=== PATIENT | male | born 1985 | race Caucasian/White ===

== ENCOUNTER 2016-11-01 16:22 | Emergency (ER) | payer BC ==
[~2016-11-01] VITALS: Ht 177.8 cm; Wt 102.1 kg
[~2016-11-01 16:22] MED LIST: ATIVAN0.5 MG PO; CEFTIN500 MG PO; COUMADIN 3 MG TA3 M1 PO; COUMADIN7.5 MG PO; FLAGYL500 MG PO; HYDROCODONE-AP1 EAC6 PO; PREDNISONE 10 M10 MG; VENLAFAXIN75 MG/1 T2 PO
[2016-11-01] MEDS ORDERED: XARELTO15 MG PO (16:52)
[2016-11-01 17:31] LABS: HEMATOCRIT 44.1 % (42.0-52.0); HEMOGLOBIN 14.8 gm/dL (14.0-18.0); MCH 26.8 pg (26.0-34.0); MCHC 33.7 g/dL (28.0-37.0); MCV 79.7 fL (80.0-100.0); PLATELET COUNT 239 thou/uL (150-400); RBC 5.53 mil/uL (4.50-6.00); WBC 9.5 thou/uL (4.0-11.0)
[2016-11-01 17:32] LABS: MANUAL DIFF YES
[2016-11-01 17:42] LABS: INR 1.2; PROTIME 12.3 Seconds (9.3-11.4)
[2016-11-01 18:07] LABS: ABSOLUTE NEUTROPHILS 5.2 thou/uL (1.4-8.2); ATYPICAL LYMPHS 6 %; TOTAL CELL COUNT 100
[2016-11-01] MEDS ORDERED: PREDNISONE 20 M20 MG PO (18:55)
[2016-11-01] MEDS ORDERED: HYDROCODONE-ACE15 ML PO (19:02)
== END 2016-11-01 19:58 | disposition home or self-care (01) ==
LOC: ER 16:22
PROVIDERS: Nurse Practitioner Family
DX: B27.90 Infectious mononucleosis, unspecified without complication (principal); R79.1 Abnormal coagulation profile; F17.220 Nicotine dependence, chewing tobacco, uncomplicated; F12.10 Cannabis abuse, uncomplicated; Z90.49 Acquired absence of other specified parts of digestive tract; Z86.14 Personal history of Methicillin resistant Staphylococcus aureus infection; Z86.711 Personal history of pulmonary embolism

== ENCOUNTER 2019-11-26 09:47 | Emergency (ER) | payer OTHER ==
[~2019-11-26] VITALS: Ht 180.3 cm; Wt 127.0 kg
[~2019-11-26 09:47] MED LIST changes: +HYDROCODONE-ACE15 ML PO; +PREDNISONE 20 M20 MG PO; +XARELTO15 MG PO
[2019-11-26] MEDS ORDERED: KEFLEX500 M1 PO (10:20)
[2019-11-26] MEDS ORDERED: BACTRIM DS TAB1 EACH PO (10:20)
[2019-11-26] MEDS ORDERED: MOBIC7.5 MG PO (10:20)
[2019-11-26 10:26] VITALS: BP 124/96
== END 2019-11-26 10:34 | disposition home or self-care (01) ==
LOC: ER 09:47
DX: L08.9 Local infection of the skin and subcutaneous tissue, unspecified (principal); B95.8 Unspecified staphylococcus as the cause of diseases classified elsewhere; I87.8 Other specified disorders of veins; L97.419 Non-pressure chronic ulcer of right heel and midfoot with unspecified severity; F17.220 Nicotine dependence, chewing tobacco, uncomplicated; Z90.49 Acquired absence of other specified parts of digestive tract; Z86.711 Personal history of pulmonary embolism; Z86.718 Personal history of other venous thrombosis and embolism; Z86.14 Personal history of Methicillin resistant Staphylococcus aureus infection; Z79.899 Other long term (current) drug therapy